=== PATIENT | female | born 1945 | race Caucasian/White ===

== ENCOUNTER 2023-04-22 10:17 | Outpatient (CLI) | payer MEDICARE, SELFPAY ==
--- NOTE | ~2023-04-22 | US_ITS ---
Limited Abdominal Sonogram: Real-time sonographic imaging of the right upper quadrant was performed. Clinical History: Epigastric pain Findings: The liver appears normal with no evidence of mass lesion or bile duct dilatation. Main por elif vein demonstrates normal direction of flow. The gallbladder is well distended, and appears normal with no evidence of gallstone or wall thickening. The common bile duct measures 4 mm. The visualize d pancreas, aorta, and IVC are unremarkable. Impression: No significant abnormality seen. Reviewed, dictated and finalized at location M. HING MACHINE OPERATOR Impression: No significant abnormality seen.
--- NOTE | ~2023-04-22 | XR_ITS ---
Clinical Indication: Dyspnea PA and lateral views of the chest: Comparison: None Findings: The lungs are clear, without evidence of focal consolidation or pleural effusion. Probable COPD. Cardiomediastinal silhouette is within normal limits. Bones and soft tissues are unremarkable. Impression: Probable COPD. Clear lungs. Reviewed, dictated and finalized at location . CULTURAL PLOW OPERATOR Impression: Probable COPD. Clear lungs.
== END 2023-04-22 10:18 | disposition home or self-care (01) ==
PROVIDERS: PCP Internal Medicine; Visit Provider Internal Medicine
DX: R01.1 Cardiac murmur, unspecified (principal); Z12.31 Encounter for screening mammogram for malignant neoplasm of breast
CPT/HCPCS: 71046; 76705

== ENCOUNTER 2023-05-11 12:27 | Outpatient (CLI) | payer MEDICARE, SELFPAY ==
--- NOTE | 2023-05-11 | ECG_ITS ---
Measurements Intervals Western Rate: 82 P: 65 WA: 143 QRS: 45 QRSD: 82 T: 46 QT: 375 QTc: 440 Interpretive Statements SINUS RHYTHM WITH SINUS ARRHYTHMIA DELAYED PRECORDIAL R/S TRANSITION BORDERLINE ECG NO PREVIOUS ECG AVAILABLE FOR COMPARISON Electronically Signed On 05-11-2023 14:59:02 LIQUID FERTILIZER SERVICER by Dima Santos D.O.
--- NOTE | 2023-05-11 16:37 | WPDPFTINT ---
PFT Procedure Performed PFT Procedure Performed Plethysmography (Lung Vol) Diffusing Cap (DLCO) Flow Vol Loop Spirometry w/o Bronchodil PFT Interpretation This is a pulmonary function test with spirometry, plethysmography and diffusing capacity. The test was performed and results interpreted in accordance with the 2019 and 2005 ATS/ERS Task Force guidelines respectively using the Global Lung Function Initiative-2012 reference equations. Patient demonstrated good effort and cooperation. Reproducibility criteria were met. The quality of the spirometry maneuver was Grade A. Findings: Spirometry: There is decreased maximal expiratory airflow at all lung volumes with concave expiratory flow tracing. The contour the inspiratory flow tracing is normal. The FVC is 2.25 L, 87% predicted. The FEV1 is 1.06 L, 54% predicted. The FEV1: FVC ratio is 47%. Plethysmography: The total lung capacity is 5.21 L, 103% predicted. The functional residual capacity is 3.52 L, 120% predicted. The residual volume is 2.89 L, 122% predicted. Diffusing capacity: The diffusing capacity unadjusted for hemoglobin and carboxyhemoglobin is 8.2, 42% predicted. The diffusing capacity adjusted for alveolar volume is 2.37, 57% predicted. Impression: There is a moderately severe obstructive abnormality. The lung volumes are normal. The diffusing capacity unadjusted for hemoglobin and carboxyhemoglobin is moderately decreased and remains moderately decreased when adjusted for alveolar volume. There are no prior studies for comparison
== END 2023-05-11 12:28 | disposition home or self-care (01) ==
LOC: ANHPFT 12:28
PROVIDERS: Visit Provider Internal Medicine
DX: R06.00 Dyspnea, unspecified (principal); R01.1 Cardiac murmur, unspecified; R94.2 Abnormal results of pulmonary function studies
CPT/HCPCS: 93005; 94375; 94726; 94729

== ENCOUNTER 2023-09-01 16:01 | Inpatient (IN) | payer MEDICARE, SELFPAY ==
[2023-09-01] VITALS (9 sets, daily range): BP systolic 129–168; BP diastolic 57–101; PULSE 80–88; RESP 14–29; TEMP 36.3–36.4; O2SAT 94–100; BMI 20.5; BMI 22.2
--- NOTE | ~2023-09-01 | XR_ITS ---
EXAMINATION: XR chest 1V portable Exam Date/Time: 09/01/2023 18:20 CDT HISTORY: SOB;COUGH Comparison: 04/22/2023. RESULT: Lines, tubes, and devices: None. Lungs and pleura: Moderate peripheral and basal reticular opacities. Subsegmental right lower lung a irspace disease. Cardiomediastinal silhouette: Stable. Other: No acute osseous or upper abdominal finding. IMPRESSION: Subsegmental right lower lung airspace disease may represent atelectasis or focus of infection. Recom mend radiographic follow-up to an short resolution. 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 Reviewed, dictated and finalized at location K. IMPRESSION: Subsegmental right lower lung airspace disease may represent atelectasis or foc us of infection. Recommend radiographic follow-up to an short resolution. 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
--- NOTE | 2023-09-01 18:30 | ED.GENADULT ---
HPI - General Adult General Chief complaint: Upper Respiratory Infection Stated complaint: COUGH,WEAK LOW O2 SATS Time Seen by Provider: 09/01/23 18:13 History of Present Illness HPI narrative: 78-year-old female presenting to the emergency department for evaluation for worsening cough and shortness of breath. Patient states that the symptoms have been going on for the last 4 weeks but patient states her granddaughter checked on her today and was concerned due to how poorly grandmother looked today. Upon arrival emergency department patient was saturating 80% on room air but did improve to the 90s on 2 L of oxygen by nasal cannula. Patient does have a smoking history but quit multiple years ago and has no oxygen requirement at baseline. Related Data Home Medications Medication Instructions Recorded Confirmed amlodipine 5 mg tablet 5 mg PO DAILY 09/01/23 09/01/23 buspirone 5 mg tablet 5 mg PO DAILY 09/01/23 09/01/23 cilostazol 100 mg tablet 100 mg PO BIDPC 09/01/23 09/01/23 donepezil 5 mg tablet 5 mg PO DAILY 09/01/23 09/01/23 simvastatin 20 mg tablet 20 mg PO DAILY 09/01/23 09/01/23 warfarin 2 mg tablet 2 mg PO DAILY 09/01/23 09/01/23 Allergies Allergy/AdvReac Type Severity Reaction Status Date / Time No Known Allergies Allergy Verified 09/01/23 16:43 Review of Systems Review of Systems: All systems reviewed & are unremarkable except as noted in HPI and below PMFSH Past Medical History Medical History (Updated 09/01/23 @ 22:24 by Sakshi Cote PA-C) Anxiety Cerebral aneurysm In her 40s. She had seizures thereafter but no issues for many years. Chronic anticoagulation Patient uncertain as to why she is taking this. Cognitive impairment Hyperlipidemia Hypertension Surgical History Surgical History (Updated 09/01/23 @ 22:16 by Sakshi Cote PA-C) Surgical history unknown Family History Family History Sibling Cancer Son Cancer Father Heart attack Social History Social History (Updated 09/01/23 @ 22:16 by Sakshi Cote PA-C) Social History: Surrogate medical decision maker: Liliana Umaña, granddaughter. Code status: Full code. Smoking status: Former smoker Tobacco type: cigarettes Alcohol intake: never Substance use: never Do You Feel Safe in your Home?: Yes Lack of Transportation: No Lack of Food: Never True Current Housing: I Have Housing Concerned About Future Housing: No Difficulty Paying Gas/Electric Bills: No Difficulty Paying for Meds: No Currently Unemployed: No Education: High School Diploma/GED Difficulty w/ Childcare or Family Care: No Additional living arrangements comments: . She had 1 son who recently of lung cancer. Lives with sister in [place]. Spiritual care concerns: No Exam Narrative: APPEARANCE: Well appearing, no pain, no distress, well-nourished. HEAD: normocephalic, atraumatic. EYES: PERRLA/EOMI, conjunctivae clear. NOSE: Normal no drainage EARS:TMS clear with good light reflex. THROAT: Pharynx clear, no exudate. NECK: Supple. No adenopathy, no masses. RESPIRATORY: rhonchi bilaterally CARDIOVASCULAR: Regular rate and rhythm without murmurs rubs or gallops. ABDOMINAL: Soft, nontender, nondistended, normal bowel sounds MUSCULOSKELETAL: Moves all extremities. Strength/ROM intact, No edema, No calf tenderness. NEURO: Alert. Cranial nerves II through XII intact. Grossly intact SKIN: Warm, dry. Normal Color Course Vital Signs Vital signs: Vital Signs Temperature 97.5 F L 09/01/23 16:38 Pulse Rate 80 09/01/23 16:38 Respiratory Rate 16 09/01/23 16:38 Blood Pressure 145/59 H 09/01/23 16:38 Pulse Oximetry 97 09/01/23 16:38 Oxygen Delivery Nasal Cannula 09/01/23 16:38 Oxygen Flow Rate 2 09/01/23 16:38 Temperature 97.4 F L 09/01/23 21:32 Pulse Rate 87 09/01/23 21:32 Respiratory Rate 2
[2023-09-01 18:35] LABS: Basophils Percent Auto 0.4 % (0.2-1.2); Eosinophils Absolute Auto 0.1 K/mm3 (0-0.3); Eosinophils Percent Auto 1.4 % (0-4.4); Hematocrit 43.1 % (37.0-47.0); Hemoglobin 13.8 g/dL (12.0-15.0); Immature Granulocyte Absolute 0.03 K/mm3 (0.00-0.031); Immature Granulocyte Percent A 0.3 % (0-0.5); Lymphocytes Absolute Auto 0.74 K/mm3 (0.9-3.2); Lymphocytes Percent Auto 8.1 % (18.3-44.2); Mean Corpuscular Hemoglobin 28.5 pg (26-34); Mean Corpuscular Volume 88.9 fl (80-100); Mean Platelet Volume 9.6 fl (7.4-10.4); Monocytes Absolute Auto 0.8 K/mm3 (0.1-0.6); Monocytes Percent Auto 8.2 % (2.6-8.5); Neutrophils Absolute Auto 7.4 K/mm3 (1.3-6.7); Neutrophils Percent Auto 81.6 % (45.5-73.1); Platelet Count Result 223 k/mm3 (150-375); Red Blood Count 4.85 M/mm3 (4.2-5.4); Red Cell Distribution Width 17.5 % (11.5-14.5); White Blood Count 9.1 K/mm3 (4.5-10.0)
[2023-09-01 18:49] LABS: Alanine Aminotransferase 24 U/L (6-35); Albumin Level 4.3 g/dL (3.5-5.1); Alkaline Phosphatase 66 U/L (38-126); Anion Gap 7 mmol/L (4-12); Aspartate Amino Transferase 41 U/L (14-36); Bilirubin,Total 0.6 mg/dL (0.2-1.3); Blood Urea Nitrogen 21 mg/dL (7-17); Carbon Dioxide 28 mmol/L (22-30); Chloride 106 mmol/L (98-107); Estimated CRCL calculation 39 ml/min; Estimated Glomerular Filt Rate > 60; Glucose 142 mg/dL (65-110); Lipase 57 U/L (23-300); Potassium 3.8 mmol/L (3.4-5.0); Sodium 141 mmol/L (137-145)
[2023-09-01 18:50] LABS: Lactic Acid Reflex 1.4 mmol/L (0.7-2.0)
[2023-09-01 18:51] LABS: INR 1.7; Prothrombin Time 21.1 Seconds (11.1-14.7)
[2023-09-01 18:52] LABS: Partial Thromboplastin Time 38.8 Seconds (22.3-36.8)
[2023-09-01 18:58] LABS: NT Pro B Type Natriuretic Pept 470 pg/mL (19.9-100)
[2023-09-01 19:00] LABS: Influenza A QL RT-PCR Positive (Negative); Influenza B QL RT-PCR Negative (Negative); RSV RNA, RT-PCR Negative (Negative); SARS-CoV-2 RNA PCR Negative (Negative)
[2023-09-01] MEDS: AZITHROMYCIN 500 MG/NS 250 ML 500 MG/250 ML BAG 250 MG IVPB (19:30)
--- NOTE | 2023-09-01 19:36 | PC.NURSE ---
one set of cultures received by myself, SHARLENE Vazquez. the other set obtained by Taylor Bautista [facility]. labels had already been printed, so they are both under Taylor Méndez RN
--- NOTE | 2023-09-01 19:47 | PM.IMHP ---
H&P: HPI History of Present Illness Date/Time: 09/01/23 19:50 Chief Complaint: Cough. Narrative: This is a pleasant 78-year-old female with hypertension, hyperlipidemia, suspected COPD, and cognitive impairment who presented to the emergency department via EMS from home for evaluation of cough. The patient provides the following history but she is not the best historian. From what I can gather, she has had a cough for several weeks. It is nagging and nonproductive. She has been taking cough syrup without much benefit. Appetite has not been great. She has had some loose stools. Granddaughter reportedly came to visit her today and was concerned with how she looked and called 911. On EMS arrival her SpO2 was 89% on room air and she is currently on 2 L nasal cannula with an SpO2 in the upper 90s. She was afebrile in the ED with stable blood pressures. Labs were significant for WBC count of 9.1, hemoglobin 13.8, BUN 21, glucose 142, lactic acid 1.4, proBNP 470. She tested positive for influenza A. Chest x-ray showed subsegmental right lower lobe airspace disease which may represent atelectasis or focus of infection and chronic interstitial changes likely representing UIP. She was started on azithromycin and ceftriaxone for possible bacterial pneumonia and Tamiflu and she is being admitted in this setting for further treatment. At the time my evaluation she is resting comfortably and only complains of the neck in cough. She does not think that she has had a fever and she denies headache, sinus congestion, sore throat, chest pain, pleuritic pain, nausea, and vomiting. Review of Systems Review of Systems: 12 systems were reviewed and are negative except for as per HPI. [facility] Past Medical History Medical History (Updated 09/01/23 @ 22:24 by Sakshi Cote PA-C) Anxiety Cerebral aneurysm In her 40s. She had seizures thereafter but no issues for many years. Chronic anticoagulation Patient uncertain as to why she is taking this. Cognitive impairment Hyperlipidemia Hypertension Surgical History Surgical History (Updated 09/01/23 @ 22:16 by Sakshi Cote PA-C) Surgical history unknown Family History Family History Sibling Cancer Son Cancer Father Heart attack Social History Social History (Updated 09/01/23 @ 22:16 by Sakshi Cote PA-C) Social History: Surrogate medical decision maker: Liliana Umaña, granddaughter. Code status: Full code. Smoking status: Former smoker Tobacco type: cigarettes Alcohol intake: never Substance use: never Do You Feel Safe in your Home?: Yes Lack of Transportation: No Lack of Food: Never True Current Housing: I Have Housing Concerned About Future Housing: No Difficulty Paying Gas/Electric Bills: No Difficulty Paying for Meds: No Currently Unemployed: No Education: High School Diploma/GED Difficulty w/ Childcare or Family Care: No Additional living arrangements comments: . She had 1 son who recently of lung cancer. Lives with sister in [place]. Spiritual care concerns: No Meds Home Medications and Allergies Home Medications Medication Instructions Recorded Confirmed Type amlodipine 5 mg tablet 5 mg PO DAILY 09/01/23 09/01/23 History buspirone 5 mg tablet 5 mg PO DAILY 09/01/23 09/01/23 History cilostazol 100 mg tablet 100 mg PO BIDPC 09/01/23 09/01/23 History donepezil 5 mg tablet 5 mg PO DAILY 09/01/23 09/01/23 History simvastatin 20 mg tablet 20 mg PO DAILY 09/01/23 09/01/23 History Allergies Allergy/AdvReac Type Severity Reaction Status Date / Time No Known Allergies Allergy Verified 09/01/23 16:43 Vital Signs Vital Signs - 24 hr 09/01/23 16:38 09/01/23 18:02 09/01/23 18:32 Temperature 97.5 F L Pulse Rate 80 83 Respiratory Rate 16 28 H Blood Pressure 145/59 H 153/66 H Pulse Oximetry 97 95 96 Oxygen Delivery Nasal Cannula
[2023-09-01 20:14] LABS: Appearance Urine Clear (Clear); Bacteria Urine None Seen /hpf; Bilirubin Urine Negative (Negative); Blood Urine Negative (Negative); Color Urine Yellow (Yellow); Glucose Urine UA Negative (Negative); Ketones Urine Trace mg/dL (Negative); Leukocyte Esterase Ur Negative LEU/UL (Negative); Nitrate Urine Negative (Negative); Non Pathogenic Casts 0-2; Protein Urine Trace mg/dL (Negative); RBC Urine 0-2 /hpf (0-2); Specific Grav Ur 1.022 (1.001-1.035); Squamous Epithelial Cell Urine None Seen /hpf (Few); WBC Urine 0-5 /hpf (0-3); pH Urine 5.5 (5.0-9.0)
[2023-09-01 20:25] LABS: Add Urine Microscopic? YES
[2023-09-01] MEDS: OSELTAMIVIR PHOSPHATE 30 MG CAPSULE PO (21:11)
[2023-09-02] VITALS (12 sets, daily range): BP systolic 108–132; BP diastolic 54–77; PULSE 73–107; RESP 16–21; TEMP 36.2–36.9; O2SAT 94–98
[2023-09-02] MEDS: WARFARIN (*PBKC) 2 MG TABLET PO ×2 (00:58→17:18)
[2023-09-02] MEDS: ALBUTEROL SULFATE NEB 2.5 MG/3 ML INH INHALATION ×4 (01:15→20:23)
[2023-09-02] MEDS: cilostazoL 100 MG TABLET PO ×2 (05:08→17:18)
[2023-09-02 05:34] LABS: Hematocrit 41.3 % (37.0-47.0); Hemoglobin 12.7 g/dL (12.0-15.0); Mean Corpuscular HGB Conc 30.8 g/dl (32-36); Mean Corpuscular Hemoglobin 27.9 pg (26-34); Mean Corpuscular Volume 90.6 fl (80-100); Mean Platelet Volume 10.3 fl (7.4-10.4); Platelet Count Result 212 k/mm3 (150-375); Red Blood Count 4.56 M/mm3 (4.2-5.4); Red Cell Distribution Width 17.7 % (11.5-14.5); White Blood Count 9.9 K/mm3 (4.5-10.0)
[2023-09-02 05:43] LABS: INR 1.9; Prothrombin Time 23.5 Seconds (11.1-14.7)
[2023-09-02 05:45] LABS: Anion Gap 9 mmol/L (4-12); Blood Urea Nitrogen 19 mg/dL (7-17); Calcium 9.1 mg/dL (8.4-10.2); Carbon Dioxide 25 mmol/L (22-30); Chloride 109 mmol/L (98-107); Estimated CRCL calculation 46 ml/min; Estimated Glomerular Filt Rate > 60; Glucose 117 mg/dL (65-110); Magnesium 1.8 mg/dL (1.6-2.3); Potassium 3.7 mmol/L (3.4-5.0); Sodium 143 mmol/L (137-145)
[2023-09-02] MEDS: OSELTAMIVIR PHOSPHATE 30 MG CAPSULE PO ×2 (10:19→20:47)
[2023-09-02] MEDS: amLODIPine BESYLATE 5 MG TABLET PO (10:19)
[2023-09-02] MEDS: DONEPEZIL HCL 5 MG TABLET PO (10:19)
[2023-09-02] MEDS: guaiFENesin 12 HR 600 MG TABCR PO ×2 (10:19→20:47)
[2023-09-02] MEDS: SIMVASTATIN 20 MG TABLET PO (10:20)
[2023-09-02] MEDS: busPIRone HCL 5 MG TABLET PO (10:20)
--- NOTE | 2023-09-02 13:23 | PM.IMPN ---
Progress Note: A&P Assessment and Plan (1) Hypoxia: Code(s): R09.02 - Hypoxemia Status: Acute Assessment and Plan: possible causes influenza/pneumonia Bronchodilators. Spirometry and chest x-ray reviewed IV antibiotics Zithromax and Rocephin Keeping BMI less than 25. Routine exercises. Pneumoniae and flu vaccines as advised For disease management to follow GOLD guidelines. Repeat hospitilaztion risk evaluation per CAT. 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 Started on Tamiflu (3) Pneumonia: Code(s): J18.9 - Pneumonia, unspecified organism Status: Acute Assessment and Plan: as above (4) Hypertension: Code(s): I10 - Essential (primary) hypertension Status: Acute Assessment and Plan: continue antihypertensive medications and monitor blood pressure closely resume amlodipine 5 mg (5) Hyperlipidemia: Code(s): E78.5 - Hyperlipidemia, unspecified Status: Acute Assessment and Plan: diet exercise weight loss. Resume Zocor (6) Anxiety: Code(s): F41.9 - Anxiety disorder, unspecified Status: Acute Assessment and Plan: continue BuSpar 5 mg q.day (7) Chronic anticoagulation: Code(s): Z79.01 - manager long term care (current) use of anticoagulants Status: Acute Assessment and Plan: will continue warfarin monitor INR Plan DVT prophylaxis. Lovenox GI prophylaxis. All records reviewed Discussed plan of care with the nursing staff and with the patient in detail. Answered all questions and concerns from the patient. All labs have been reviewed. Code status updated dictation may have been done utilizing a voice recognition system. Attempts have been made to correct errors. However, there may be uncorrected grammatical, spelling, and recognition errors present. Subjective Date/time seen: 09/02/23 13:23 Interval history: patient still has some dry cough no fever no chills Review of Systems Review of Systems: All systems reviewed & are unremarkable except as noted in HPI and below Exam Narrative: GENERAL: Well appearing, no acute distress. HEAD: Normocephalic, atraumatic. NECK: Supple. No adenopathy, no masses. RESPIRATORY: respirations nonlabored. , no rales, somewheezing. CARDIOVASCULAR: Regular rate and rhythm without murmurs, . Peripheral pulses 2+ and equal bilaterally. ABDOMINAL: Soft, nontender, nondistended, no hepatosplenomegaly. Normoactive BS. MUSCULOSKELETAL: no Epigastric and no hypochondrial tenderness SKIN: Warm, dry, NEURO: A&O X3. Moves all extremities Objective Data Vital Signs Vital Signs: Vital Signs - 24 hr 09/01/23 16:38 09/01/23 18:02 09/01/23 18:32 Temperature 36.4 C L Pulse Rate 80 83 Respiratory Rate 16 28 H Blood Pressure 145/59 H 153/66 H Pulse Oximetry 97 95 96 Oxygen Delivery Nasal Cannula Nasal Cannula Oxygen Flow Rate 2 2 09/01/23 18:02 09/01/23 18:32 09/01/23 19:02 Temperature Pulse Rate 84 85 87 Respiratory Rate 29 H 18 16 Blood Pressure 139/64 129/57 L 131/66 Pulse Oximetry 100 96 100 Oxygen Delivery Oxygen Flow Rate 09/01/23 19:32 09/01/23 19:00 09/01/23 20:00 Temperature Pulse Rate 87 83 88 Respiratory Rate 14 20 23 H Blood Pressure 142/101 H 131/66 148/69 H Pulse Oximetry 97 95 94 Oxygen Delivery Oxygen Flow Rate 09/01/23 21:32 09/01/23 23:44 09/02/23 01:16 Temperature 36.3 C L Pulse Rate 87 81 Respiratory Rate 20 21 H Blood Pressure 168/62 H Pulse Oximetry 99 98 Oxygen Delivery Nasal Cannula Oxygen Flow Rate 2 09/02/23 01:27 09/02/23 01:28 09/02/23 07:24 Tem
[2023-09-02] MEDS: AZITHROMYCIN 500 MG/NS 250 ML 500 MG/250 ML BAG 250 MG IVPB (18:28)
[2023-09-03] VITALS (14 sets, daily range): BP systolic 116–141; BP diastolic 63–69; PULSE 81–179; RESP 16–22; TEMP 36.2–37.1; O2SAT 94–100
[2023-09-03] MEDS: cilostazoL 100 MG TABLET PO ×2 (06:19→17:13)
[2023-09-03] MEDS: ALBUTEROL SULFATE NEB 2.5 MG/3 ML INH INHALATION (07:38)
--- NOTE | 2023-09-03 08:00 | ECG_ITS ---
SEE SCANNED COPY FOR CONFIRMED REPORT. MTDD
[2023-09-03] MEDS: METOPROLOL TARTRATE INJ 5 MG/5 ML VIAL IV PUSH (08:10)
--- NOTE | 2023-09-03 08:10 | PC.NURSE ---
RT informed RN that patient's heart rate was in the 170's after respiratory treatment. RN put patient on auditor in charge to confirm. RN called Hospitalist Parisa to update him on patient.
[2023-09-03] MEDS: guaiFENesin 12 HR 600 MG TABCR PO ×2 (08:22→20:48)
[2023-09-03] MEDS: OSELTAMIVIR PHOSPHATE 30 MG CAPSULE PO ×2 (08:22→20:48)
[2023-09-03] MEDS: SIMVASTATIN 20 MG TABLET PO (08:22)
[2023-09-03] MEDS: busPIRone HCL 5 MG TABLET PO (08:22)
[2023-09-03] MEDS: DONEPEZIL HCL 5 MG TABLET PO (08:22)
[2023-09-03 08:38] LABS: Prothrombin Time 23.8 Seconds (11.1-14.7)
--- NOTE | 2023-09-03 10:30 | PM.IMPN ---
Progress Note: A&P Assessment and Plan (1) Hypoxia: Code(s): R09.02 - Hypoxemia Status: Acute Assessment and Plan: possible causes influenza/pneumonia Bronchodilators. Xopenex and will give 1 dose of methylprednisolone Spirometry and chest x-ray reviewed IV antibiotics Zithromax and Rocephin Keeping BMI less than 25. Routine exercises. Pneumoniae and flu vaccines as advised For disease management to follow GOLD guidelines. Repeat hospitilaztion risk evaluation per CAT. 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 Started on Tamiflu (3) Pneumonia: Code(s): J18.9 - Pneumonia, unspecified organism Status: Acute Assessment and Plan: as above (4) Hypertension: Code(s): I10 - Essential (primary) hypertension Status: Acute Assessment and Plan: continue antihypertensive medications and monitor blood pressure closely resume amlodipine 5 mg (5) Hyperlipidemia: Code(s): E78.5 - Hyperlipidemia, unspecified Status: Acute Assessment and Plan: diet exercise weight loss. Resume Zocor (6) Anxiety: Code(s): F41.9 - Anxiety disorder, unspecified Status: Acute Assessment and Plan: continue BuSpar 5 mg q.day (7) Chronic anticoagulation: Code(s): Z79.01 - supervisor intermediates (current) use of anticoagulants Status: Acute Assessment and Plan: will continue warfarin monitor INR (8) SVT (supraventricular tachycardia): Code(s): I47.10 - Supraventricular tachycardia, unspecified Status: Acute Assessment and Plan: patient given 1 dose of Solu-Medrol and nebulizer has been switched to Xopenex. Give Lopressor 5 mg IV slow patient's heart rate came back from 170-84. Blood pressure is well controlled patient doing well will continue monitor Plan DVT prophylaxis. Lovenox GI prophylaxis. All records reviewed Discussed plan of care with the nursing staff and with the patient in detail. Answered all questions and concerns from the patient. All labs have been reviewed. Code status updated dictation may have been done utilizing a voice recognition system. Attempts have been made to correct errors. However, there may be uncorrected grammatical, spelling, and recognition errors present. Subjective Date/time seen: 09/03/23 10:30 Interval history: patient was called in to be seen for rapid heart rate diagnosed with SVT on nebulizer treatment patient is seen bilaterally cough shortness breath no chest pain Review of Systems Review of Systems: All systems reviewed & are unremarkable except as noted in HPI and below Exam Narrative: GENERAL: Well appearing, no acute distress. HEAD: Normocephalic, atraumatic. NECK: Supple. No adenopathy, no masses. RESPIRATORY: respirations nonlabored. , no rales, somewheezing. CARDIOVASCULAR: Regular rate and rhythm without murmurs, . Peripheral pulses 2+ and equal bilaterally. ABDOMINAL: Soft, nontender, nondistended, no hepatosplenomegaly. Normoactive BS. MUSCULOSKELETAL: no Epigastric and no hypochondrial tenderness SKIN: Warm, dry, NEURO: A&O X3. Moves all extremities Objective Data Vital Signs Vital Signs: Vital Signs - 24 hr 09/02/23 13:04 09/02/23 13:17 09/02/23 14:00 Temperature 36.9 C Pulse Rate 76 80 73 Respiratory Rate 20 20 16 Blood Pressure 124/54 L Pulse Oximetry 98 Oxygen Delivery Oxygen Flow Rate Fraction of Inspired Oxygen 09/02/23 20:23 09/02/23 20:23 09/02/23 20:29 Temperature Pulse Rate 73 77 Respiratory Rate 20 20 Blood Pressure Pulse Oximetry 95 Oxygen Delivery Nasal Cannula
[2023-09-03] MEDS: methylPREDNISolone SOD SUCC 125 MG VIAL 80 MG IV PUSH (13:26)
[2023-09-03] MEDS: LEVALBUTEROL NEB 1.25 MG/3 ML INHALATION ×2 (13:50→20:16)
[2023-09-03] MEDS: WARFARIN (*PBKC) 2 MG TABLET PO (17:13)
[2023-09-03] MEDS: AZITHROMYCIN 500 MG/NS 250 ML 500 MG/250 ML BAG 250 MG IVPB (18:31)
[2023-09-03] MEDS: ACETAMINOPHEN 325 MG TABLET 650 MG PO (20:48)
[2023-09-04] VITALS (17 sets, daily range): BP systolic 141–145; BP diastolic 58–75; PULSE 79–123; RESP 16–20; TEMP 36.2–36.9; O2SAT 92–95
[2023-09-04] MEDS: LEVALBUTEROL NEB 1.25 MG/3 ML INHALATION ×4 (02:32→20:25)
[2023-09-04 05:41] LABS: INR 2.2; Prothrombin Time 25.8 Seconds (11.1-14.7)
[2023-09-04] MEDS: cilostazoL 100 MG TABLET PO ×2 (06:06→17:12)
[2023-09-04] MEDS: DONEPEZIL HCL 5 MG TABLET PO (08:36)
[2023-09-04] MEDS: OSELTAMIVIR PHOSPHATE 30 MG CAPSULE PO ×2 (08:36→20:38)
[2023-09-04] MEDS: guaiFENesin 12 HR 600 MG TABCR PO ×2 (08:36→20:38)
[2023-09-04] MEDS: SIMVASTATIN 20 MG TABLET PO (08:36)
[2023-09-04] MEDS: busPIRone HCL 5 MG TABLET PO (08:36)
[2023-09-04] MEDS: amLODIPine BESYLATE 5 MG TABLET PO (08:37)
--- NOTE | 2023-09-04 16:13 | PM.IMPN ---
Progress Note: A&P Assessment and Plan (1) Hypoxia: Code(s): R09.02 - Hypoxemia Status: Acute Assessment and Plan: influenza A positive. on oseltamivir. contiue Bronchodilators. Xopenex and will give 1 dose of methylprednisolone Spirometry and chest x-ray reviewed IV antibiotics Zithromax and Rocephin Keeping BMI less than 25. Routine exercises. Pneumoniae and flu vaccines as advised For disease management to follow GOLD guidelines. Repeat hospitilaztion risk evaluation per CAT. 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 Started on Tamiflu (3) Pneumonia: Code(s): J18.9 - Pneumonia, unspecified organism Status: Acute Assessment and Plan: cxr with subsegmnetla right lower lung airspace disase may represent atelectasis or focus of infection. chronic interstitial change likley UIP on iv antibiotics. will switch to oral (4) Hypertension: Code(s): I10 - Essential (primary) hypertension Status: Acute Assessment and Plan: continue antihypertensive medications and monitor blood pressure closely resume amlodipine 5 mg (5) Hyperlipidemia: Code(s): E78.5 - Hyperlipidemia, unspecified Status: Acute Assessment and Plan: diet exercise weight loss. Resume Zocor (6) Anxiety: Code(s): F41.9 - Anxiety disorder, unspecified Status: Acute Assessment and Plan: continue BuSpar 5 mg q.day (7) Chronic anticoagulation: Code(s): Z79.01 - alf (current) use of anticoagulants Status: Acute Assessment and Plan: will continue warfarin monitor INR (8) SVT (supraventricular tachycardia): Code(s): I47.10 - Supraventricular tachycardia, unspecified Status: Acute Assessment and Plan: patient given 1 dose of Solu-Medrol and nebulizer has been switched to Xopenex. Give Lopressor 5 mg IV slow patient's heart rate came back from 170-84. Blood pressure is well controlled patient doing well will continue monitor currently better Plan DVT prophylaxis. warfarin Code status ful code dictation may have been done utilizing a voice recognition system. Attempts have been made to correct errors. However, there may be uncorrected grammatical, spelling, and recognition errors present. Subjective Date/time seen: 09/04/23 16:13 Interval history: feeling better. off oxygen. still has some cough with no expectoration. Review of Systems Review of Systems: All systems reviewed & are unremarkable except as noted in HPI and below Exam Narrative: GENERAL: Well appearing, no acute distress. HEAD: Normocephalic, atraumatic. NECK: Supple. No adenopathy, no masses. RESPIRATORY: respirations nonlabored. , no rales, coarse breath sounds, rhonchi noted CARDIOVASCULAR: Regular rate and rhythm without murmurs, . Peripheral pulses 2+ and equal bilaterally. ABDOMINAL: Soft, nontender, nondistended, no hepatosplenomegaly. Normoactive BS. MUSCULOSKELETAL: no Epigastric and no hypochondrial tenderness SKIN: Warm, dry, NEURO: A&O X3. Moves all extremities Objective Data Vital Signs Vital Signs: Vital Signs - 24 hr 09/03/23 17:20 09/03/23 20:17 09/03/23 20:33 Temperature Pulse Rate 85 86 Respiratory Rate 20 20 Blood Pressure Pulse Oximetry 95 Oxygen Delivery Room Air 09/03/23 20:49 09/04/23 02:32 09/04/23 02:40 Temperature 97.6 F Pulse Rate 95 79 80 Respiratory Rate 16 20 20 Blood Pressure 124/66 Pulse Oximetry 95 Oxygen Delivery 09/03/23 20:00 09/04/23 00:00 09/04/23 04:00 Temperature Pulse Rate 95 98 99 Respiratory Rate Blood Pressure
[2023-09-04] MEDS: WARFARIN (*PBKC) 2 MG TABLET PO (17:12)
[2023-09-04] MEDS: CEFDINIR 300 MG CAPSULE PO (20:39)
[2023-09-05] VITALS (7 sets, daily range): BP systolic 146; BP diastolic 72; PULSE 79–92; RESP 16–18; TEMP 36.5; O2SAT 94–95
[2023-09-05] MEDS: LEVALBUTEROL NEB 1.25 MG/3 ML INHALATION ×2 (02:37→07:50)
[2023-09-05] MEDS: cilostazoL 100 MG TABLET PO (05:22)
[2023-09-05 05:56] LABS: Basophils Percent Auto 0.1 % (0.2-1.2); Eosinophils Percent Auto 0.3 % (0-4.4); Hematocrit 36.2 % (37.0-47.0); Hemoglobin 11.5 g/dL (12.0-15.0); Immature Granulocyte Absolute 0.04 K/mm3 (0.00-0.031); Immature Granulocyte Percent A 0.5 % (0-0.5); Lymphocytes Absolute Auto 2.13 K/mm3 (0.9-3.2); Lymphocytes Percent Auto 27.9 % (18.3-44.2); Mean Corpuscular HGB Conc 31.8 g/dl (32-36); Mean Corpuscular Hemoglobin 28.7 pg (26-34); Mean Corpuscular Volume 90.3 fl (80-100); Mean Platelet Volume 9.6 fl (7.4-10.4); Monocytes Absolute Auto 0.5 K/mm3 (0.1-0.6); Monocytes Percent Auto 6.4 % (2.6-8.5); Neutrophils Percent Auto 64.8 % (45.5-73.1); Platelet Count Result 322 k/mm3 (150-375); Red Blood Count 4.01 M/mm3 (4.2-5.4); Red Cell Distribution Width 16.9 % (11.5-14.5); White Blood Count 7.6 K/mm3 (4.5-10.0)
[2023-09-05 06:06] LABS: Alanine Aminotransferase 22 U/L (6-35); Albumin Level 3.6 g/dL (3.5-5.1); Alkaline Phosphatase 67 U/L (38-126); Anion Gap 6 mmol/L (4-12); Aspartate Amino Transferase 27 U/L (14-36); Bilirubin,Total 0.6 mg/dL (0.2-1.3); Blood Urea Nitrogen 15 mg/dL (7-17); Calcium 9.4 mg/dL (8.4-10.2); Carbon Dioxide 27 mmol/L (22-30); Chloride 109 mmol/L (98-107); Estimated CRCL calculation 46 ml/min; Estimated Glomerular Filt Rate > 60; Glucose 120 mg/dL (65-110); Magnesium 1.8 mg/dL (1.6-2.3); Potassium 3.8 mmol/L (3.4-5.0); Sodium 142 mmol/L (137-145)
[2023-09-05 06:08] LABS: Prothrombin Time 24.6 Seconds (11.1-14.7)
[2023-09-05] MEDS: guaiFENesin 12 HR 600 MG TABCR PO (08:11)
[2023-09-05] MEDS: amLODIPine BESYLATE 5 MG TABLET PO (08:11)
[2023-09-05] MEDS: CEFDINIR 300 MG CAPSULE PO (08:12)
[2023-09-05] MEDS: AZITHROMYCIN 250 MG TABLET 500 MG PO (08:12)
[2023-09-05] MEDS: busPIRone HCL 5 MG TABLET PO (08:12)
[2023-09-05] MEDS: OSELTAMIVIR PHOSPHATE 30 MG CAPSULE PO (08:12)
[2023-09-05] MEDS: SIMVASTATIN 20 MG TABLET PO (08:12)
[2023-09-05] MEDS: DONEPEZIL HCL 5 MG TABLET PO (08:13)
--- NOTE | 2023-09-05 11:09 | PM.DS ---
DS: Admitting Diagnosis Discharge Date 09/05/2023 Admitting Diagnosis Shortness of breath DS: Discharge Diagnosis Discharge Diagnosis (1) Hypoxia: Code(s): R09.02 - Hypoxemia Status: Acute (2) Influenza A: Code(s): J10.1 - Influenza due to other identified influenza virus with other respiratory manifestations Status: Acute (3) Pneumonia: Code(s): J18.9 - Pneumonia, unspecified organism Status: Acute (4) Hypertension: Code(s): I10 - Essential (primary) hypertension Status: Acute (5) Hyperlipidemia: Code(s): E78.5 - Hyperlipidemia, unspecified Status: Acute (6) Anxiety: Code(s): F41.9 - Anxiety disorder, unspecified Status: Acute (7) Chronic anticoagulation: Code(s): Z79.01 - skilled nursing (current) use of anticoagulants Status: Acute (8) SVT (supraventricular tachycardia): Code(s): I47.10 - Supraventricular tachycardia, unspecified Status: Acute DS: Summary Hospital Course Hospital Course: This is an 78-year-old female who presents to the ED with worsening cough and shortness of breath ongoing for past 4 weeks. Patient was saturating 80% on room air requiring oxygen supplementation on see tested positive for influenza a in the ED and a chest x-ray findings of right lower lung airspace disease suggesting pneumonia. She was started on Tamiflu as well as antibiotics with Rocephin and azithromycin. She was also placed on supportive treatment with to as well as Mucinex. She improved significantly with the treatment and was off oxygen by the time of discharge. She will continue on oral antibiotics as ordered along with Tamiflu for her influenza a upon discharge. Time Spent with Patient Time attestation: Total time spent providing and/or coordinating discharge services: 32 minutes Exam Narrative: GENERAL: Well appearing, no acute distress. HEAD: Normocephalic, atraumatic. NECK: Supple. No adenopathy, no masses. RESPIRATORY: respirations nonlabored. , no rales, coarse breath sounds, rhonchi noted CARDIOVASCULAR: Regular rate and rhythm without murmurs, . Peripheral pulses 2+ and equal bilaterally. ABDOMINAL: Soft, nontender, nondistended, no hepatosplenomegaly. Normoactive BS. MUSCULOSKELETAL: no Epigastric and no hypochondrial tenderness SKIN: Warm, dry, NEURO: A&O X3. Moves all extremities DS: Data Data Completed and Pending Labs on day of discharge: Labs from last 24 hours 09/05/23 05:27 WBC 7.6 RBC 4.01 L Hgb 11.5 L Hct 36.2 L MCV 90.3 MCH 28.7 MCHC 31.8 L RDW 16.9 H Plt Count 322 D MPV 9.6 Immature Gran % (Auto) 0.5 Neut % (Auto) 64.8 Lymph % (Auto) 27.9 [place] % (Auto) 6.4 Eos % (Auto) 0.3 Baso % (Auto) 0.1 L Lymph # (Auto) 2.13 [place] # (Auto) 0.5 Eos # (Auto) 0.0 Baso # (Auto) 0.0 Abs Immat Gran (auto) 0.04 H Absolute Neuts (auto) 5.0 Absolute Nucleated RBC 0.000 Nucleated RBC % 0.0 PT 24.6 H INR 2.0 Sodium 142 Potassium 3.8 Chloride 109 H Carbon Dioxide 27 Anion Gap 6 BUN 15 Creatinine 0.70 Estim Creat Clear Calc 46 Estimated GFR > 60 Glucose 120 H Calcium 9.4 Magnesium 1.8 Total Bilirubin 0.6 AST 27 ALT 22 Alkaline Phosphatase 67 Total Protein 6.0 L Albumin 3.6 Preliminary micro results at discharge 09/01/23 18:47 Blood Culture - Preliminary Blood 09/01/23 18:47 Blood Culture - Preliminary Blood Imaging Radiologist's impression: ITS Impressions Chest X-Ray 09/01/23 18:32 IMPRESSION: Subsegmental right lower lung airspace disease may represent atelectasis or focus of infection. Recommend radiographic follow-up to an short resolution. 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 Discharge Plan Discharge Attending physician on discharge: Alireza Reina Discharging Clinician: Alireza Reina Anticipated Discharge Date/Time: 09/05/23 11:03 Patient Dispositio
[2023-09-07 16:37] LABS: Pneumococcal Antigen Urine DETECTED
[2023-09-08 18:33] LABS: Mycoplasma IgM Antibody Titer 77 U/mL
[2023-09-10 00:29] LABS: Legionella pneumophila Ag Ur NOT DETECTED
== END 2023-09-05 13:00 | disposition home or self-care (01) | DRG 194 ==
LOC: ANHED 19:06 → ANH3MED 20:45
PROVIDERS: Physician Assistant; Admitting Provider Internal Medicine; Emergency Provider Emergency Medicine; PCP Orthopaedic Surgery Orthopaedic Trauma; Visit Provider Internal Medicine
DX: J10.08 Influenza due to other identified influenza virus with other specified pneumonia (principal); I47.10 Supraventricular tachycardia, unspecified; J15.9 Unspecified bacterial pneumonia; J44.0 Chronic obstructive pulmonary disease with (acute) lower respiratory infection; R09.02 Hypoxemia; E78.5 Hyperlipidemia, unspecified; I10 Essential (primary) hypertension; F41.9 Anxiety disorder, unspecified; G31.84 Mild cognitive impairment of uncertain or unknown etiology; Z79.01 Long term (current) use of anticoagulants; Z87.891 Personal history of nicotine dependence
CPT/HCPCS: 36415; 71045; 80048; 80053; 81001; 83605; 83690; 83735; 83880; 85025; 85027; 85610; 85730; 86738; 87040; 87449; 87637; 87899; 93005; 94640; 94667; 94668; 96365; 96367; 97161; 97165; 99285; A9270; G0378; J0456; J0696; J2919